=== PATIENT | male | born 1995 | race Caucasian/White ===

== ENCOUNTER 2016-06-21 22:19 | Emergency (ER) | payer BC, OTHER ==
[~2016-06-21] VITALS: Ht 180.3 cm; Wt 111.9 kg
[2016-06-21 22:24] VITALS: TEMP 36.7; Ht 180.3 cm; Wt 111.9 kg
--- NOTE | 2016-06-21 23:07 | DIAGNOSTIC IMAGING REPORT ---
RIGHT HAND MIN 3 VIEWS ROUTINE CLINICAL HISTORY: Right hand pain following trauma. COMPARISON: None FINDINGS: There is a comminuted, mildly displaced and angulated fracture of the distal shaft of the right fifth metacarpal. There is associated soft tissue swelling. No additional fractures within the right hand are identified. IMPRESSION: Comminuted, mildly displaced and angulated acute fracture of the distal shaft of the right fifth metacarpal. Electronically signed by: Beau Figueroa M.D. 06/21/2016 11:06 PM Dictated Date/Time: 06/21/2016 11:05 PM
[2016-06-22 00:10] VITALS: BP 121/72; PULSE 91; O2SAT 98
--- NOTE | 2016-06-22 00:51 | EMERGENCY ROOM VISIT NOTE ---
History Report prepared by Cony: Janis Lyles Under the Supervision of: Dr. Clarence Dumont M.D. First contact with patient: 22:27 Chief Complaint: HAND PAIN/INJURY Stated Complaint: R HAND PAIN History of Present Illness The patient is a 21 year old male who presents to the Emergency Room with complaints of constant pain from injury to his right hand occurring just prior to arrival. The patient states that he was walking from his living room in his apartment to his room when he tripped and fell on the ground. He fell onto his right hand that was in a fist. He denies head injury or pain to any other locations. He denies any other symptoms at this time. Source of History: patient Onset: just ACTIVITY ASSISTANT Position: hand (right) Quality: other (pain from injury) Timing: constant Note: He denies head injury or pain to any other locations. He denies any other symptoms at this time. Review of Systems See HPI for pertinent positives & negatives. A total of 4 systems reviewed and were otherwise negative. Past Medical & Surgical Medical Problems: (1) No significant medical problems Surgical Problems: (1) No significant past surgical history Family History Patient reports no known family medical history. Social History Smoking Status: Never Smoker Alcohol Use: occasionally Marital Status: single Housing Status: lives with roommate Occupation Status: [employer] Current/Historical Medications No Active Prescriptions or Reported Meds Allergies Coded Allergies: No Known Allergies (Unverified , 01/17/15) Physical Exam Vital Signs Date Time Temp Pulse Resp B/P Pulse Ox O2 Delivery O2 Flow Rate FiO2 06/22/16 00:10 91 16 121/72 98 06/21/16 22:24 36.7 89 18 121/72 96 Room Air Physical Exam Constitutional: Vital signs reviewed. Musculoskeletal: Tenderness along right 4th and 5th metacarpal and proximal phalange of 5th digit. No tenderness to wrist or proximal. Integumentary: Slight erythema to the MCP joint. No lacerations. Neurological: The patient is awake and alert. No focal deficits. Flexion and extension intact throughout the right fifth digit, no motor or sensory deficits to right hand. Psychiatric: Normal affect. Medical Decision & Procedures ER Provider Diagnostic Interpretation: X-ray results as stated below per interpretation by me and the radiologist: RIGHT HAND MIN 3 VIEWS ROUTINE CLINICAL HISTORY: Right hand pain following trauma. COMPARISON: None FINDINGS: There is a comminuted, mildly displaced and angulated fracture of the distal shaft of the right fifth metacarpal. There is associated soft tissue swelling. No additional fractures within the right hand are identified. IMPRESSION: Comminuted, mildly displaced and angulated acute fracture of the distal shaft of the right fifth metacarpal. Electronically signed by: Beau Figueroa M.D. 06/21/2016 11:06 PM Dictated Date/Time: 06/21/2016 11:05 PM ED Course 2228: The patient was evaluated in room D3. A complete history and physical exam was performed. 2318: I discussed the X-Ray results with the patient and his marine animal trainer. 2321: I spoke with Dr. Mario Del Angel about the patient. he said to splint the hand and he will be seen in the office tomorrow. 2345: Upon reevaluation, the patient appeared to have improvement of his symptoms. I discussed tonight's findings with him. He verbalized agreement of the treatment plan. He was discharged home. Medical Decision This is a 21-year-old male who presents with an injury to his right hand. He is left-hand dominant. I did perform a limited focused review of portions of the patient's old chart on the electronic medical record. The patient has had no recent pertinent visits to this hospital. I did evaluate the patient as noted above. I did order and personally review the patient's hand x-ray as described above. He does have a fracture to the distal fifth metacarpal which is angulated. I did show the x-rays to the patient as well as his marine animal trainer. I did discuss case with Dr. Martin of orthopedics who recommends follow up tomorrow with Dr. Norton. The patient and his marine animal trainer were happy with this plan. He was placed in a ulnar gutter splint and discharged to follow up tomorrow with his orthopedic doctor. He was advised that he may undergo reduction of the fracture in the office tomorrow. Consults Time Called: 2320 Consulting Physician: Dr. Mario Del Angel Returned Call: [address] Mario Del Angel about the patient. he said to splint the hand and he will be seen in the office tomorrow. Impression Primary Impression: Fracture of fifth metacarpal bone of right hand Scribe Attestation The scribe's documentation has been prepared under my direct and personally reviewed by me in its entirety. I confirm that the note above accurately reflects all work, treatment, procedures, and medical decision making performed by me. Departure Information Dispostion Home / Self-Care Prescriptions No Active Prescriptions or Reported Meds Referrals Ki Norton M.D. (PCP) Forms HOME CARE DOCUMENTATION FORM, IMPORTANT VISIT INFORMATION Patient Instructions ED Fx [place] Additional Instructions You have been examined and treated today on an emergency basis only. This is not a substitute for, or an effort to provide, complete comprehensive medical care. It is impossible to recognize and treat all injuries or illnesses in a single emergency department visit. It is therefore important that you follow up closely with Dr. Norton tomorrow for possible reduction of your fracture. Call as soon as possible for an appointment. Return for worsening symptoms or if you develop numbness or weakness in your fingers or significant swelling to your hand or any other concerning symptoms. Problem Qualifiers Primary Impression: Fracture of fifth metacarpal bone of right hand Encounter type: initial encounter Fracture type: closed Metacarpal location : shaft Fracture alignment: displaced Qualified Codes: S62.326A - Displaced fracture of shaft of fifth metacarpal bone, right hand, initial encounter for closed fracture
== END 2016-06-22 00:11 | disposition home or self-care (01) ==
LOC: C.EDB 22:21 → C.EDD 06-22 00:11
DX: S62.326A Displaced fracture of shaft of fifth metacarpal bone, right hand, initial encounter for closed fracture (principal); W18.09XA Striking against other object with subsequent fall, initial encounter; Y92.038 Other place in apartment as the place of occurrence of the external cause

== ENCOUNTER → 2016-06-29 | Outpatient (CLI) | payer BC | END | disposition home or self-care (01) | LOC: C.RDSM 14:30 | PROVIDERS: ATTEND Physical Medicine & Rehabilitation Sports Medicine | DX: S62.366A Nondisplaced fracture of neck of fifth metacarpal bone, right hand, initial encounter for closed fracture (principal); X58.XXXA Exposure to other specified factors, initial encounter ==

== ENCOUNTER → 2016-07-07 | Outpatient (CLI) | payer BC, OTHER | END | disposition home or self-care (01) | LOC: C.RDSM 15:50 | PROVIDERS: ATTEND Physical Medicine & Rehabilitation Sports Medicine | DX: S62.366A Nondisplaced fracture of neck of fifth metacarpal bone, right hand, initial encounter for closed fracture (principal); X58.XXXA Exposure to other specified factors, initial encounter ==

== ENCOUNTER → 2016-07-19 | Outpatient (CLI) | payer BC, OTHER | END | disposition home or self-care (01) | LOC: C.RDSM 14:32 | PROVIDERS: ATTEND Physical Medicine & Rehabilitation Sports Medicine | DX: S62.366A Nondisplaced fracture of neck of fifth metacarpal bone, right hand, initial encounter for closed fracture (principal); X58.XXXA Exposure to other specified factors, initial encounter ==